=== PATIENT | female | born 1985 | race Caucasian/White ===

== ENCOUNTER 2018-08-19 15:01 | Inpatient (IN) | payer OTHER ==
[~2018-08-19] VITALS: Ht 177.8 cm; Wt 113.4 kg
[2018-08-21] MEDS ORDERED: PRENATAL TABLE1 EAC4 PO (20:30)
== END 2018-08-24 13:04 | DRG 807 ==
LOC: LDR 08-21 19:44 → OB/GYN 08-22 15:01
PROVIDERS: ADMIT Obstetrics & Gynecology
PROC: 4A1HXCZ Monitoring of Products of Conception, Cardiac Rate, External Approach (ICD-10-PCS; 2018-08-21)
PROC: 10E0XZZ Delivery of Products of Conception, External Approach (ICD-10-PCS; principal; 2018-08-22)
PROC: 0KQM0ZZ Repair Perineum Muscle, Open Approach (ICD-10-PCS; 2018-08-22)
PROC: 3E033VJ Introduction of Other Hormone into Peripheral Vein, Percutaneous Approach (ICD-10-PCS; 2018-08-22)
DX: O70.1 Second degree perineal laceration during delivery (principal); Z37.0 Single live birth; Z3A.39 39 weeks gestation of pregnancy; Z22.330 Carrier of Group B streptococcus

== ENCOUNTER 2019-03-21 11:58 | Outpatient (CLI) | payer OTHER ==
[~2019-03-21 11:58] MED LIST: PRENATAL TABLE1 EAC4 PO
== END 2019-03-21 12:27 | disposition home or self-care (01) ==
LOC: MRI 11:58
DX: M25.561 Pain in right knee (principal); M25.562 Pain in left knee
CPT/HCPCS: 73721